=== PATIENT | male | born 1940 | race Caucasian/White ===

== ENCOUNTER → 2016-10-16 | Outpatient (CLI) | payer MEDICARE ==
--- NOTE | 2016-10-16 09:34 | CT ---
EXAMINATION TYPE: CT abdomen pelvis wo con DATE OF EXAM: 10/16/2016 9:22 AM COMPARISON: NONE HISTORY: Hematuria CT DLP: 1168 mGycm FINDINGS: LUNG BASES: No evidence for nodule. No evidence for infiltrate. LIVER/GB: The gallbladder is unremarkable. 1.6 cm cyst posterior segment right hepatic lobe with kulwant tional cyst noted within the dome of the liver left hepatic lobe measuring 5 mm in additional to segm ent right hepatic lobe cyst measuring 1 cm. PANCREAS: No pancreatic mass identified. No inflammatory process seen. SPLEEN: No evidence for splenomegaly. No intrasplenic lesions seen. ADRENALS: No adrenal nodules identified. No evidence for thickening. KIDNEYS: No evidence for renal mass. No nephrolithiasis. No hydronephrosis. Urinary bladder wall thic kening may reflect cystitis. BOWEL: Appendix has a normal appearance. No evidence of bowel obstruction. No inflammatory process. S igmoid diverticulosis without diverticulitis. Lymph nodes: No evidence for adenopathy greater than 1 cm. Abdominal aorta: Atheromatous changes seen. No evidence for aneurysm. Genital organs: Enlargement of the prostate gland noted. Other: Right inguinal hernia containing fat. IMPRESSION: 1. FAT-CONTAINING RIGHT INGUINAL HERNIA. 2. PROSTATE ENLARGEMENT. 3. URINARY BLADDER WALL THICKENING MAY REFLECT CYSTITIS.
== END | disposition home or self-care (01) ==
LOC: RADCTMAIN 08:55
PROVIDERS: ATTEND Internal Medicine Geriatric Medicine
DX: K40.90 Unilateral inguinal hernia, without obstruction or gangrene, not specified as recurrent (principal); N40.0 Benign prostatic hyperplasia without lower urinary tract symptoms; N32.89 Other specified disorders of bladder
CPT/HCPCS: 74176

== ENCOUNTER → 2017-06-05 | Outpatient (CLI) | payer MEDICARE ==
--- NOTE | 2017-06-05 11:28 | US ---
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 Pt states palpable lump right groin s/p heart cath on EXAM PERFORMED: Grayscale and color Doppler duplex imaging performed of the groin, post cardiac olga lidia ter to assess for pseudoaneurysm. SIDE PERFORMED: Right Color and Waveform Doppler performed to assess for the presence of pseudoaneurysm; Is there ultrasound evidence of a pseudoaneurysm: No Is there evidence of AV shunting: No Is there a fluid collection present: No Isoechoic to hypoechoic mass at pt's palp= 4.1 x 2.8 x 4.0 cm IMPRESSION: Resolving hematoma without evidence for pseudoaneurysm.
== END | disposition home or self-care (01) ==
LOC: RADUSWWP 10:48
PROVIDERS: ATTEND Internal Medicine Cardiovascular Disease
DX: M79.81 Nontraumatic hematoma of soft tissue (principal)
CPT/HCPCS: 93975

== ENCOUNTER → 2017-09-11 | Outpatient (CLI) | payer MEDICARE ==
[2017-09-11 13:08] LABS: Basophils # (A) 0.1 k/uL (0-0.2); Basophils % (A) 1 %; Eosinophils # (A) 0.1 k/uL (0-0.7); Eosinophils % (A) 1 %; HCT 39.1 % (39.0-53.0); HGB 13.2 gm/dL (13.0-17.5); Lymphocytes # (A) 1.3 k/uL (1.0-4.8); Lymphocytes % (A) 19 %; MCH 29.7 pg (25.0-35.0); MCHC 33.9 g/dL (31.0-37.0); MCV 87.6 fL (80.0-100.0); Mean Platelet Volume 7.7; Monocytes # (A) 0.4 k/uL (0-1.0); Monocytes % (A) 5 %; Neutrophils # (A) 4.9 k/uL (1.3-7.7); Neutrophils % (A) 73 %; Platelet Count 206 k/uL (150-450); RBC 4.46 m/uL (4.30-5.90); RDW 13.5 % (11.5-15.5); WBC 6.8 k/uL (3.8-10.6)
== END | disposition home or self-care (01) ==
LOC: LABWHC1 12:24
PROVIDERS: ATTEND Nurse Practitioner Adult Health
DX: K62.5 Hemorrhage of anus and rectum (principal)
CPT/HCPCS: 36415; 85025

== ENCOUNTER 2024-11-20 21:18 | Emergency (ER) | payer MEDICARE ==
[2024-11-20 21:29] VITALS: TEMP 99
--- NOTE | 2024-11-20 21:50 | ED ---
ENT HPI - General Chief complaint: ENT Stated complaint: nose bleed Time Seen by Provider: 11/20/24 21:34 Source: patient, RN notes reviewed Mode of arrival: ambulatory Limitations: no limitations - History of Present Illness Initial comments: 84-year-old male presents emergency room with complaints of a right naris nosebleed that occurred this evening. Patient states that he was picking up a tissue the time of the ground he began to notice that his nose was bleeding. States he attempted use Afrin to alleviate the bleeding however this is not helped. He denies dizziness, lightheadedness, visual disturbances. Denies blood thinner use. - Related Data Home Medications Medication Instructions Recorded Confirmed Famotidine 20 mg PO DAILY 05/24/17 05/24/17 Fenofibrate Nanocrystallized 160 mg PO DAILY 05/24/17 05/24/17 [Triglide] Latanoprost [Xalatan 0.005%] 1 drop BOTH EYES HS 05/24/17 05/24/17 Spironolactone [Aldactone] 25 mg PO DAILY 05/24/17 05/24/17 Previous Rx's Medication Instructions Recorded Aspirin 81 mg PO DAILY chew 05/27/17 Atorvastatin [Lipitor] 80 mg PO HS #30 tab 05/27/17 Clopidogrel [Plavix] 75 mg PO DAILY #30 tab 05/27/17 Metoprolol Tartrate [Lopressor] 25 mg PO BID #60 tab 05/27/17 Nitroglycerin Sl Tabs [Nitrostat] 0.4 mg SUBLINGUAL Q5M PRN #25 tab 05/27/17 lisinopriL [Zestril] 5 mg PO DAILY #30 tab 05/27/17 Allergies Allergy/AdvReac Type Severity Reaction Status Date / Time No Known Allergies Allergy Verified 11/20/24 21:29 Review of Systems ROS Statement: Those systems with pertinent positive or pertinent negative responses have been documented in the HPI. ROS Other: All systems not noted in ROS Statement are negative. Past Medical History Past Medical History: Coronary Artery Disease (CAD), Eye Disorder, Hyperlipidemia, Hypertension, Myocardial Infarction ([place]) Additional Past Medical History / Comment(s): Glaucoma Last Myocardial Infarction Date:: 05/24/2017 History of Any Multi-Drug Resistant Organisms: None Reported Past Surgical History: Heart Catheterization With Stent, Hernia Repair, Orthopedic Surgery Additional Past Surgical History / Comment(s): Left wrist sx Past Anesthesia/Blood Transfusion Reactions: No Reported Reaction Date of Last Stent Placement:: 05/24/2017 Past Psychological History: No Psychological Hx Reported Smoking Status: Never smoker Past Alcohol Use History: None Reported Past Drug Use History: None Reported - Past Family History Father Family Medical History: Diabetes Mellitus Mother Family Medical History: Cancer General Exam Limitations: no limitations General appearance: alert, in no apparent distress ENT exam: Present: other (right nares bleed- anterior) Neck exam: Present: normal inspection. Absent: tenderness, meningismus, lymphadenopathy Respiratory exam: Present: normal lung sounds bilaterally. Absent: respiratory distress, wheezes, rales, rhonchi, stridor Cardiovascular Exam: Present: regular rate, normal rhythm, normal heart sounds. Absent: systolic murmur, diastolic murmur, rubs, gallop, clicks GI/Abdominal exam: Present: soft, normal bowel sounds. Absent: distended, tenderness, guarding, rebound, rigid Course Vital Signs 11/20/24 11/20/24 21:26 22:32 Temperature 99 F Pulse Rate 94 57 L Respiratory 18 16 Rate Blood Pressure 148/76 131/67 O2 Sat by Pulse 100 99 Oximetry Medical Decision Making - Medical Decision Making Was pt. sent in by a medical professional or institution (, PA, AUDITOR/QUALITY, urgent care, hospital, or jail...) When possible be specific @ -No Did you speak to anyone other than the patient for history (EMS, parent, family, police, friend...)? What history was obtained from this source @ -No Did you review nursing and triage notes (agree or disagree)? Why? @ -I reviewed and agree with nursing and triage notes Were old charts reviewed (outside hosp., previous admission, EMS record, old EKG, old radiological studies, urgent care reports/EKG's, jail records)? Report findings @ -No old charts were reviewed Differential Diagnosis (chest pain, altered mental status, abdominal pain women, abdominal pain men, vaginal bleeding, weakness, fever, dyspnea, syncope, headache, dizziness, GI bleed, back pain, seizure, CVA, palpatations, mental health, musculoskeletal)? @ -Anterior nosebleed, posterior nosebleed, nasal trauma, nasal bone fracture, this list is not all inclusive EKG interpreted by me (3pts min.). @ -None X-rays interpreted by me (1pt min.). @ -None done CT interpreted by me (1pt min.). @ -None done U/S interpreted by me (1pt. min.). @ -None done What testing was considered but not performed or refused? (CT, X-rays, U/S, labs)? Why? @ -Silver nitrate cauterization 6 were considered but deferred as patient nosebleed has ceased after direct pressure has been applied. What meds were considered but not given or refused? Why? @ -None Did you discuss the management of the patient with other professionals (professionals i.e. Dr., PA, AUDITOR/QUALITY, lab, RT, psych nurse, social media designer, human resources associate, teacher, technology officer, case briefer)? Give summary @ -No Was smoking cessation discussed for >3mins.? @ -No Was critical care preformed (if so, how long)? @ -No Were there social determinants of health that impacted care today? How? (Homelessness, low income, unemployed, alcoholism, drug addiction, transportation, low edu. Level, literacy, decrease access to med. care, fdc, rehab)? @ -No Was there de-escalation of care discussed even if they declined (Discuss DNR or withdrawal of care, Hospice)? DNR status @ -No What co-morbidities impacted this encounter? (DM, HTN, Smoking, COPD, CAD, Cancer, CVA, ARF, Chemo, Hep., AIDS, mental health diagnosis, sleep apnea, morbid obesity)? @ -None Was patient admitted / discharged? Hospital course, mention meds given and route, prescriptions, significant lab abnormalities, going to OR and other pertinent info. @ -Discharge. 84 male presenting with a nosebleed. There is active bleeding from the right naris on initial examination. Direct pressure is applied after use of Afrin which has revealed cease of bleeding. Patient is informed of supportive treatment if return nosebleed has returned. case discussed with Dr. Chand Undiagnosed new problem with uncertain prognosis? @ -No Drug Therapy requiring intensive monitoring for toxicity (Heparin, Nitro, Insulin, Cardizem)? @ -No Were any procedures done? @ -No Diagnosis/symptom? @ -Anterior nosebleed Acute, or Chronic, or Acute on Chronic? @ -Acute Uncomplicated (without systemic symptoms) or Complicated (systemic symptoms)? @ -Uncomplicated Side effects of treatment? @ -No Exacerbation, Progression, or Severe Exacerbation? @ -No Poses a threat to life or bodily function? How? (Chest pain, [place], [place], pneumonia, PE, COPD, DKA, ARF, appy, cholecystitis, CVA, Diverticulitis, Homicidal, Suicidal, threat to staff... and all critical care pts) @ -No Disposition Clinical Impression: Epistaxis Disposition: HOME SELF-CARE Condition: Stable Instructions (If sedation given, give patient instructions): Nosebleed (ED) Additional Instructions: Please return to the Emergency Department if symptoms worsen or any other concerns. Is patient prescribed a controlled substance at d/c from ED?: No Referrals: Alcides Rivas MD [Primary Care Provider] - 1-2 days Time of Disposition: 23:10
[2024-11-20] MEDS: LIDOCAINE 4% LTA KIT (4 ML) TOPICAL STA (22:31)
[2024-11-20] MEDS: SILVER NITRATE APPLICATOR 1 EACH STICK..EA. TOPICAL STA (22:31)
[2024-11-20 22:33] VITALS: BP 131/67; PULSE 57; RESP 16
== END 2024-11-20 23:27 | disposition home or self-care (01) ==
LOC: EC 21:18
DX: R04.0 Epistaxis (principal)
CPT/HCPCS: 99283